=== PATIENT | female | born 1995 | race African-American/Black ===

== ENCOUNTER 2021-11-22 17:38 | Emergency (ER) | payer OTHER, MEDICAID ==
[~2021-11-22] VITALS: Ht 175.3 cm; Wt 77.0 kg
[2021-11-22] MEDS ORDERED: LIDOCAINE HCL/PF 1% 10 MG/ML 5ML VIAL INFIL ONE (17:45)
[2021-11-22] MEDS ORDERED: LIDOCAINE HCL 1% 10 MG/ML 10ML VIAL IJ NR (18:04)
[2021-11-22] MEDS ORDERED: IBUPROFEN 800MG TABLET PO ONE (19:00)
[2021-11-22 20:00] VITALS: BP 125/56
== END 2021-11-22 20:03 ==
LOC: ER 17:38
DX: S92.401A Displaced unspecified fracture of right great toe, initial encounter for closed fracture (principal); S01.511A Laceration without foreign body of lip, initial encounter; Y04.0XXA Assault by unarmed brawl or fight, initial encounter; Y93.89 Activity, other specified; Y92.89 Other specified places as the place of occurrence of the external cause; Y99.8 Other external cause status
CPT/HCPCS: 12011; 73630; 99283; J3490; Z7610